=== PATIENT | female | born 1945 | race Caucasian/White ===

== ENCOUNTER 2017-12-08 19:29 | Emergency (ER) | payer BC ==
[2017-12-08] MEDS: MECLIZINE 12.5 MG TAB PO (22:19)
[2017-12-08] MEDS: SOD CHLORIDE 0.9% 500 ML IV (22:20)
[2017-12-08] MEDS: LORAZEPAM 2 MG INJ IV (22:20)
[2017-12-08 22:24] LABS: ADD MAN DIFF? NO
[2017-12-08 22:26] LABS: WHITE BLOOD COUNT 8.7 10^3/ul (4.8-10.8)
[2017-12-08 22:26] LABS: BASOPHIL # 0.1 10^3/ul (0.0-0.1); BASOPHILS % 0.6 % (0.0-2.0); EOSINOPHILS # 0.1 10^3/ul (0.0-0.5); EOSINOPHILS % 0.7 % (0.0-7.0); HEMATOCRIT 37.5 % (37.0-47.0); HEMOGLOBIN 12.6 g/dl (12.0-16.0); LYMPHOCYTES # 1.5 10^3/ul (0.8-2.9); LYMPHOCYTES % 17.7 % (15.0-51.0); MEAN CORPUSCULAR HEMOGLOBIN 30.9 pg (29.0-33.0); MEAN CORPUSCULAR HGB CONC 33.6 g/dl (32.0-37.0); MEAN CORPUSCULAR VOLUME 91.9 fl (82.0-101.0); MEAN PLATELET VOLUME 11.4 fl (7.4-10.4); MONOCYTE # 0.4 10^3/ul (0.3-0.9); NEUTROPHIL # 6.7 10^3/ul (1.6-7.5); NEUTROPHILS % 76.8 % (39.0-77.0); PLATELET COUNT 222 10^3/UL (140-415); RED BLOOD COUNT 4.08 10^6/ul (4.20-5.40); RED CELL DISTRIBUTION WIDTH 13.7 % (11.5-14.5)
[2017-12-08 22:49] LABS: ANION GAP 16 (8-16); BLOOD UREA NITROGEN 22 mg/dl (7-20); CALCIUM 9.8 mg/dl (8.4-10.2); CARBON DIOXIDE 26 mmol/L (21-31); CHLORIDE 100 mmol/L (97-110); CREATININE 0.67 mg/dl (0.44-1.00); GLUCOSE 139 mg/dl (70-220); POTASSIUM 3.6 mmol/L (3.5-5.1); SODIUM 138 mmol/L (135-144)
[2017-12-08 23:05] LABS: INR 1.01; PROTIME 13.4 Sec (11.9-14.9)
== END 2017-12-08 23:57 | disposition home or self-care (01) ==
LOC: E/R 19:29
DX: H81.399 Other peripheral vertigo, unspecified ear (principal); R40.2252 Coma scale, best verbal response, oriented, at arrival to emergency department; I10 Essential (primary) hypertension; R40.2142 Coma scale, eyes open, spontaneous, at arrival to emergency department; R40.2362 Coma scale, best motor response, obeys commands, at arrival to emergency department; R07.9 Chest pain, unspecified
CPT/HCPCS: 36415; 70450; 80048; 85025; 85610; 85730; 96374; 99285-25

== ENCOUNTER 2017-12-11 08:18 | Observation (INO) | payer BC ==
[2017-12-11] MEDS: SOD CHLORIDE 0.9% 1,000 ML IV ×2 (07:00→20:20)
[~2017-12-11 08:18] MED LIST: CEFAZOLIN 1 GM INJ
[2017-12-11] MEDS ORDERED: MIDAZOLAM 1 MG/ML 2 ML INJ (12:07)
[2017-12-11] MEDS ORDERED: ETOMIDATE 20 MG INJ (12:07)
[2017-12-11] MEDS ORDERED: LIDOCAINE 1% (MDV) 20 ML INJ (12:07)
[2017-12-11] MEDS ORDERED: FENTAnyl 50 MCG/ML VIAL (12:07)
[2017-12-11] MEDS ORDERED: PROVENTIL HFA 6.7GM INHALER (12:17)
[2017-12-11] MEDS: CEFAZOLIN 2 GM/50 ML (PMX) 50 ML IVPB (12:20)
[2017-12-11] MEDS ORDERED: LABETALOL HCL 20MG INJ (12:20)
[2017-12-11] MEDS ORDERED: PHENYLephrine (100 MCG/ML) 5ML SYG (12:39)
[2017-12-11] MEDS ORDERED: ONDANSETRON 4 MG INJ (12:39)
[2017-12-11] MEDS ORDERED: DEXAMETHASONE 4 MG/ML 1 ML INJ (12:39)
[2017-12-11] MEDS: ISOSULFAN BLUE 1% 5 ML INJ SC (12:58)
[2017-12-11] MEDS ORDERED: ACETAMINOPHEN 1000MG/100ML IV 100 ML IVPB (13:30)
[2017-12-11] MEDS ORDERED: morphine 2 MG INJ IV (13:30)
[2017-12-11] MEDS ORDERED: ONDANSETRON 4 MG INJ IV (13:30)
[2017-12-11] MEDS ORDERED: hydrALAzine 20 MG INJ IV ×2 (14:00→14:30)
[2017-12-11] MEDS ORDERED: LABETALOL HCL 20MG INJ IV (14:00)
[2017-12-11] MEDS: HYDROmorphONE (0.2 MG/ML) 10ML SYG IV (14:22)
[2017-12-11] MEDS ORDERED: ALBUTEROL/IPRATROPIUM (NEB) 3 ML AMP HHN (14:30)
[2017-12-11] MEDS: D5W-0.45 NACL + KCL 20 MEQ 1,000 ML IV ×2 (16:27→20:32)
[2017-12-11] MEDS: ATORVASTATIN 10 MG TAB PO (20:33)
[2017-12-11] MEDS ORDERED: SALMETEROL XINAFOATE INH (21:00)
[2017-12-12] MEDS: D5W-0.45 NACL + KCL 20 MEQ 1,000 ML IV ×2 (02:58→13:14)
[2017-12-12 06:08] LABS: BASOPHILS % 0.1 % (0.0-2.0); HEMATOCRIT 34.6 % (37.0-47.0); HEMOGLOBIN 11.4 g/dl (12.0-16.0); LYMPHOCYTES # 1.3 10^3/ul (0.8-2.9); LYMPHOCYTES % 12.6 % (15.0-51.0); MEAN CORPUSCULAR HEMOGLOBIN 30.7 pg (29.0-33.0); MEAN CORPUSCULAR HGB CONC 32.9 g/dl (32.0-37.0); MEAN CORPUSCULAR VOLUME 93.3 fl (82.0-101.0); MEAN PLATELET VOLUME 11.6 fl (7.4-10.4); MONOCYTE # 0.4 10^3/ul (0.3-0.9); NEUTROPHIL # 8.8 10^3/ul (1.6-7.5); NEUTROPHILS % 82.9 % (39.0-77.0); PLATELET COUNT 198 10^3/UL (140-415); RED BLOOD COUNT 3.71 10^6/ul (4.20-5.40); RED CELL DISTRIBUTION WIDTH 14.3 % (11.5-14.5)
[2017-12-12 06:08] LABS: WHITE BLOOD COUNT 10.6 10^3/ul (4.8-10.8)
[2017-12-12 06:09] LABS: ADD MAN DIFF? NO
[2017-12-12 06:39] LABS: ANION GAP 16 (8-16); BLOOD UREA NITROGEN 17 mg/dl (7-20); CALCIUM 9.4 mg/dl (8.4-10.2); CARBON DIOXIDE 26 mmol/L (21-31); CHLORIDE 105 mmol/L (97-110); CREATININE 0.74 mg/dl (0.44-1.00); GLUCOSE 142 mg/dl (70-220); POTASSIUM 4.5 mmol/L (3.5-5.1); SODIUM 142 mmol/L (135-144)
[2017-12-12] MEDS ORDERED: NON-FORMULARY/PATIENT OWN MED (Fluticasone Furoate (Arnuity Ellipta) 100 MCG) INHALATION (09:00)
[2017-12-12] MEDS: LOSARTAN 25 MG TAB PO (09:27)
[2017-12-12] MEDS: SOD CHLORIDE 0.9% 1,000 ML IV (09:40)
[2017-12-12] MEDS: HYDROCODONE/APAP (5/325) TAB PO (09:53)
== END 2017-12-12 14:15 | disposition home or self-care (01) ==
LOC: SDS 08:18 → REC 13:14 → MS1 14:58
DX: C50.911 Malignant neoplasm of unspecified site of right female breast (principal); Z17.0 Estrogen receptor positive status [ER+]; I10 Essential (primary) hypertension; J45.909 Unspecified asthma, uncomplicated
CPT/HCPCS: 19301; 71045; 80048; 85025; 88307; 88331; 88342; 93005

== ENCOUNTER 2018-08-05 09:30 | Day surgery (SDC) | payer BC ==
[2018-08-05] MEDS ORDERED: PROPOFOL 20 ML ×2 (11:30→12:11)
== END 2018-08-05 13:09 | disposition home or self-care (01) ==
LOC: GIL 09:30
DX: Z12.11 Encounter for screening for malignant neoplasm of colon (principal); K64.8 Other hemorrhoids; D12.5 Benign neoplasm of sigmoid colon; D12.3 Benign neoplasm of transverse colon; I10 Essential (primary) hypertension; E78.5 Hyperlipidemia, unspecified; J45.909 Unspecified asthma, uncomplicated
CPT/HCPCS: 45385; 88305

== ENCOUNTER 2018-10-22 11:28 | Emergency (ER) | payer BC ==
[2018-10-22 12:58] LABS: ADD MAN DIFF? NO
[2018-10-22] MEDS: morphine 4 MG/ML VIAL IV (13:00)
[2018-10-22] MEDS: KETOROLAC 15 MG INJ IV (13:00)
[2018-10-22 13:03] LABS: BASOPHIL # 0.1 10^3/ul (0.0-0.1); BASOPHILS % 0.5 % (0.0-2.0); EOSINOPHILS # 0.2 10^3/ul (0.0-0.5); EOSINOPHILS % 1.5 % (0.0-7.0); HEMOGLOBIN 13.2 g/dl (12.0-16.0); LYMPHOCYTES # 1.8 10^3/ul (0.8-2.9); LYMPHOCYTES % 17.9 % (15.0-51.0); MEAN CORPUSCULAR HEMOGLOBIN 30.8 pg (29.0-33.0); MEAN CORPUSCULAR VOLUME 93.5 fl (82.0-101.0); MEAN PLATELET VOLUME 10.7 fl (7.4-10.4); MONOCYTE # 0.9 10^3/ul (0.3-0.9); MONOCYTES % 8.6 % (0.0-11.0); NEUTROPHIL # 7.2 10^3/ul (1.6-7.5); NEUTROPHILS % 70.9 % (39.0-77.0); PLATELET COUNT 224 10^3/UL (140-415); RED BLOOD COUNT 4.28 10^6/ul (4.20-5.40)
[2018-10-22 13:03] LABS: WHITE BLOOD COUNT 10.1 10^3/ul (4.8-10.8)
[2018-10-22 13:21] LABS: ALANINE AMINOTRANSFERASE 13 IU/L (13-69); ALBUMIN 4.6 g/dl (3.3-4.9); ALBUMIN/GLOBULIN RATIO 1.27; ALKALINE PHOSPHATASE 128 IU/L (42-121); ANION GAP 12 (5-13); ASPARTATE AMINO TRANSFERASE 27 IU/L (15-46); BILIRUBIN,INDIRECT 0.9 mg/dl (0-1.1); BILIRUBIN,TOTAL 0.9 mg/dl (0.2-1.3); BLOOD UREA NITROGEN 16 mg/dl (7-20); CALCIUM 10.2 mg/dl (8.4-10.2); CARBON DIOXIDE 26 mmol/L (21-31); CHLORIDE 103 mmol/L (97-110); CREATININE 0.58 mg/dl (0.44-1.00); GLUCOSE 97 mg/dl (70-220); POTASSIUM 3.8 mmol/L (3.5-5.1); SODIUM 141 mmol/L (135-144); TOTAL PROTEIN 8.2 g/dl (6.1-8.1)
[2018-10-22 13:32] LABS: TROPONIN-I < 0.012 ng/ml (0.000-0.120)
== END 2018-10-22 15:13 | disposition home or self-care (01) ==
LOC: E/R 11:28
DX: M75.32 Calcific tendinitis of left shoulder (principal); I10 Essential (primary) hypertension; J45.909 Unspecified asthma, uncomplicated; Z85.3 Personal history of malignant neoplasm of breast
CPT/HCPCS: 36415; 71045; 73030; 80053; 84484; 85025; 93005; 96374; 96375; 99285-25